=== PATIENT | female | born 1980 | race Caucasian/White ===

== ENCOUNTER 2017-08-03 11:32 | Emergency (ER) | payer MEDICAID ==
[~2017-08-03] VITALS: Ht 165.1 cm; Wt 70.0 kg
[2017-08-03 11:50] VITALS: BP 146/79
[2017-08-03] MEDS ORDERED: CYCL-1 PO (13:06)
[2017-08-03] MEDS ORDERED: ketorolac trometh inj. 60 MG/2 ML VIAL IM STA (13:07)
== END 2017-08-03 13:45 | disposition home or self-care (01) ==
LOC: ER 11:32
DX: M54.5 Low back pain (principal); Z79.899 Other long term (current) drug therapy
CPT/HCPCS: 72170; 96372; 99284; J1885